=== PATIENT | female | born 1980 | race Caucasian/White ===

== ENCOUNTER 2018-08-28 17:20 | Emergency (ER) | payer SELFPAY ==
[~2018-08-28] VITALS: Ht 165.1 cm; Wt 97.9 kg
[2018-08-28 17:23] VITALS: BP 148/76; PULSE 92; RESP 18; Ht 165.1 cm; Wt 97.9 kg
--- NOTE | 2018-08-28 17:43 | ERD ---
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 It was minimal bleeding and she was able to clean it out. She came to the ER for further evaluation. She does not smoke nor drink, vaccinations up-to-date Past medical/surgical history: None ROS All systems reviewed and are negative except as per history of present illness. Allergies Allergies: Coded Allergies: No Known Allergy (Unverified , 08/28/18) PMhx/Soc History of Surgery: No Anesthesia Reaction: No Hx Neurological Disorder: No Hx Respiratory Disorders: No Hx Cardiac Disorders: No Hx Psychiatric Problems: No Hx Miscellaneous Medical Probl: No Hx Alcohol Use: No Hx Substance Use: No Hx Tobacco Use: No Smoking Status: Never smoker Physical Exam Vitals Vital Signs Date Temp Pulse Resp B/P (MAP) Pulse Ox O2 O2 Flow FiO2 Time Delivery Rate 08/28/18 99.2 92 18 148/76 97 17:23 (100) Physical Exam Const: No acute distress. Head: Atraumatic. Eyes: Normal Conjunctiva. ENT: Normal External Ears, Nose and Mouth. Neck: Full range of motion. No meningismus. Resp: Clear to auscultation bilaterally. Cardio: Regular rate and rhythm. Abd: Soft, non distended, normal bowel sounds, non tender. Skin: No petechiae or rashes. Back: No midline or flank tenderness. Ext: No cyanosis, or edema. Right thumb with a minimal puncture wound, no bleeding Neur: Awake and alert. No focal deficit Psych: Normal Mood and Affect. Results 24 hrs Laboratory Tests Test 08/28/18 18:11 Hepatitis B Surface Antigen NEGATIVE Hepatitis B Surface Antibody NEGATIVE Hepatitis C Antibody NEGATIVE HIV (1&2) Antibody NEGATIVE Procedures/MDM MEDICAL MAKING DECISION: The patient is a 37-year-old female, presenting with acute accidental needlestick, her blood work including HIV, hep C antibody, hep B surface antigen, hep B surface antibody were submitted she is at very low risk for any prophylactic She is at low risk for any prophylactic at this time and she does not want any Departure Diagnosis: Primary Impression: Needlestick injury accident Condition: Good Comments I discussed the findings with the patient. I advised the patient to follow-up with [facility] tomorrow and return if any concern. Disclaimer: Inadvertent spelling and grammatical errors are likely due to EHR/dictation software use and do not reflect on the overall quality of patient care. Also, please note that the electronic time recorded on this note does not necessarily reflect the actual time of the patient encounter. RUY PALM MD Aug 28, 2018 17:43
== END 2018-08-28 18:55 | disposition home or self-care (01) ==
LOC: E/R 17:20
DX: S61.001A Unspecified open wound of right thumb without damage to nail, initial encounter (principal); W46.0XXA Contact with hypodermic needle, initial encounter; Y92.9 Unspecified place or not applicable
CPT/HCPCS: 86703; 86706; 86803; 87340; 99283